=== PATIENT | female | born 1945 | race Caucasian/White ===

== ENCOUNTER 2021-11-03 07:11 | Observation (INO) | payer MEDICARE ==
[2021-11-02 11:39] LABS: BASOPHILS # (AUTO) 0.1 (0.0-0.1); BASOPHILS % 1.1 % (0.0-1.0); EOSINOPHILS # (AUTO) 0.1 (0.0-0.4); EOSINOPHILS % 1.2 % (0.0-6.0); HEMATOCRIT 38.6 % (34.2-44.1); HEMOGLOBIN 11.8 g/dL (12.0-16.0); LYMPHOCYTES # (AUTO) 0.9 (1.0-3.2); LYMPHOCYTES % 13.7 % (18.0-39.1); MEAN CORPUSCULAR HEMOGLOBIN 28.4 pg (28-32); MEAN CORPUSCULAR HGB CONC 30.6 g/dL (31-35); MONOCYTES # (AUTO) 0.7 (0.2-0.8); MONOCYTES % 10.2 % (4.4-11.3); NEUTROPHILS # (AUTO) 4.8 (2.1-6.9); NEUTROPHILS % 73.5 % (38.7-80.0); PLATELET COUNT 369 x10e3/uL (140-360); RED BLOOD COUNT 4.15 x10e6/uL (3.6-5.1); RED CELL DISTRIBUTION WIDTH 13.1 % (11.7-14.4)
[~2021-11-03] VITALS: Ht 167.6 cm; Wt 57.2 kg
[2021-11-03 06:50] LABS: ANION GAP 13.5 mmol/L (8-16); CALCIUM 9.1 mg/dL (8.4-10.2); CREATININE, SERUM 0.85 mg/dL (0.57-1.11); POTASSIUM 3.5 mmol/L (3.5-5.1)
[~2021-11-03 07:11] MED LIST: ACETAMINOPHEN-1 EAC4; ARAVA20 MG PO; CELECOXIB 200 MG CAP ONE; DEXAMETHASONE SOD PHOS 10 MG/1 ML VIAL ONE; DICLOFENAC35 MG PO; FOLIC ACID0.4 MG PO; GABAPENTIN 300 MG CAP ONE; LEVOTHYROXINE50 MCG PO; LISINOPRIL-HCT1 EAC2 PO; RESTASIS1 EACH; SODIUM CHLORIDE 0.9% 250ML 250 ML IV ONE; SODIUM CHLORIDE 0.9% 500ML 500 ML ONE; SULFASALAZINE500 MG PO; TRANEXAMIC ACID 20 ML ONE; Vancomycin IV 1,000 MG ONE
[2021-11-03] MEDS ORDERED: ROPIVACAINE 246.25 MG, EPINEPHRINE HCL 1:1000 1ML 0.5 MG, CLONIDINE HCL 0.08 MG, KETORO... INJ ONE ×5 (08:00)
[2021-11-03] MEDS ORDERED: ZOLPIDEM TARTRATE 5 MG TAB PO PRN (09:45)
[2021-11-03] MEDS ORDERED: DIPHENHYDRAMINE HCL INJ 50 MG/ML VIAL IV PRN (09:45)
[2021-11-03] MEDS ORDERED: HYDROCODONE/APAP 5MG-325MG TAB PO PRN (09:45)
[2021-11-03] MEDS ORDERED: DOCUSATE SODIUM 100 MG CAP PO PRN (09:45)
[2021-11-03] MEDS ORDERED: ACETAMINOPHEN 650 MG SUPP PR PRN (09:45)
[2021-11-03] MEDS ORDERED: ONDANSETRON HCL INJ 2MG/ML 2ML 2 MG/ML VIAL IV PRN (09:45)
[2021-11-03] MEDS ORDERED: HYDROCODONE/APAP 7.5MG-325MG 1 EA TAB PO PRN (09:45)
[2021-11-03] MEDS ORDERED: HYDROMORPHONE 1MG/1ML INJ ONE (10:01)
[2021-11-03 11:43] VITALS: BP 125/89
[2021-11-03 11:51] VITALS: BP 125/89
[2021-11-03 11:52] VITALS: BP 125/89
[2021-11-03] MEDS ORDERED: EPHEDRINE SULFATE INJ 50 MG/ML VIAL ONE (12:00)
[2021-11-03] MEDS ORDERED: POVIDONE IODINE 0.05% 0.05 % ML PO ONE (12:00)
[2021-11-03] MEDS ORDERED: ACETAMINOPHEN 1000 MG/100 ML IV ONE (12:00)
[2021-11-03] MEDS ORDERED: LIDOCAINE HCL 2% LOCAL INJ 5 ML SDV VIAL INJ ONE (12:00)
[2021-11-03] MEDS ORDERED: SEVOFLURANE INHAL SOLN 250 ML PEN BTL ONE (12:00)
[2021-11-03] MEDS ORDERED: PROPOFOL IV EMULSION 10 MG/ML 20 ML VIAL ONE (12:00)
[2021-11-03] MEDS ORDERED: SODIUM CHLORIDE 0.9% 1000ML 1,000 ML IV SCH (12:00)
[2021-11-03] MEDS ORDERED: ONDANSETRON HCL INJ 2MG/ML 2ML 2 MG/ML VIAL ONE (12:00)
[2021-11-03] MEDS ORDERED: PHENYLEPHRINE HCL 1% 10 MG/ML VIAL ONE (12:00)
[2021-11-03] MEDS ORDERED: ROPIVACAINE 0.5% 5 MG/ML 30 ML SDV ONE (13:20)
[2021-11-03] MEDS ORDERED: FENTANYL CITRATE/PF 100MCG/2 ML INJ ONE (13:54)
[2021-11-03] MEDS ORDERED: MIDAZOLAM HCL 2 MG/2 ML VIAL ONE (13:54)
[2021-11-03 15:58] VITALS: BP 117/65
[2021-11-03] MEDS ORDERED: ASPIRIN81 MG PO (16:37)
[2021-11-03] MEDS ORDERED: ASPIRIN 325 MG TAB PO SCH (17:00)
[2021-11-03] MEDS ORDERED: CELECOXIB 200 MG CAP PO SCH (17:00)
[2021-11-04] MEDS ORDERED: ACETAMINOPHEN 1000 MG/100 ML IV PRN (09:45)
== END 2021-11-03 17:15 | disposition home or self-care (01) ==
LOC: OR 07:11 → PACU V 09:40 → MED/SURG 11:15
PROVIDERS: ADMIT Specialist; ATTEND Specialist
DX: M06.862 Other specified rheumatoid arthritis, left knee (principal); I10 Essential (primary) hypertension; E03.9 Hypothyroidism, unspecified; E78.00 Pure hypercholesterolemia, unspecified; M54.9 Dorsalgia, unspecified; Z01.810 Encounter for preprocedural cardiovascular examination; Z01.812 Encounter for preprocedural laboratory examination; Z96.651 Presence of right artificial knee joint
CPT/HCPCS: 27447; 36415 ×2; 71046; 73560; 80048; 85025; 86850; 86900; 86920; 97110; 97116 ×2; 97161; 97530; C1713; C1776 ×4; G0378; J0131; J0171; J0690; J1100; J1170; J1885; J2001; J2250; J2370; J2405; J2704; J2795; J3010; J3370; J7040